=== PATIENT | female | born 1965 | race Caucasian/White ===

== ENCOUNTER 2020-07-21 19:59 | Emergency (ER) | payer MEDICAID ==
[~2020-07-21] VITALS: Ht 170.2 cm; Wt 177.3 kg
[2020-07-21] MEDS ORDERED: acetaminophen 325mg tablet PO ONE (20:45)
[2020-07-21] MEDS ORDERED: HYDR-3965 PO (22:26)
[2020-07-21 23:03] VITALS: BP 144/87
== END 2020-07-21 23:06 | disposition home or self-care (01) ==
LOC: ER 19:59
DX: S82.51XA Displaced fracture of medial malleolus of right tibia, initial encounter for closed fracture (principal); S82.491A Other fracture of shaft of right fibula, initial encounter for closed fracture; S50.811A Abrasion of right forearm, initial encounter; M79.604 Pain in right leg; K21.9 Gastro-esophageal reflux disease without esophagitis; F32.9 Major depressive disorder, single episode, unspecified; Z90.49 Acquired absence of other specified parts of digestive tract; Z79.899 Other long term (current) drug therapy; W18.39XA Other fall on same level, initial encounter; Y93.89 Activity, other specified; Y92.89 Other specified places as the place of occurrence of the external cause; Y99.8 Other external cause status
CPT/HCPCS: 29515; 73564; 73610; 99284

== ENCOUNTER 2021-06-12 19:59 | Emergency (ER) | payer MEDICAID ==
[~2021-06-12] VITALS: Ht 170.2 cm; Wt 173.9 kg
[2021-06-12 20:06] VITALS: BP 187/107
[2021-06-12] MEDS ORDERED: cyclobenzaprine 10mg tablet PO ONE (22:45)
== END 2021-06-12 23:11 | disposition home or self-care (01) ==
LOC: ER 20:00
DX: S00.03XA Contusion of scalp, initial encounter (principal); K21.9 Gastro-esophageal reflux disease without esophagitis; F32.A Depression, unspecified; Z90.49 Acquired absence of other specified parts of digestive tract; W19.XXXA Unspecified fall, initial encounter; Y93.89 Activity, other specified; Y92.89 Other specified places as the place of occurrence of the external cause; Y99.8 Other external cause status
CPT/HCPCS: 72125; 99284

== ENCOUNTER 2022-02-18 06:32 | Inpatient (IN) | payer MEDICAID ==
[2022-02-05 15:45] LABS: BASOPHILS % (AUTO) 0.7 % (0-1); EOSINOPHILS # (AUTO) 0.4 X10'3 (0-0.9); EOSINOPHILS % (AUTO) 6.2 % (0-6); LYMPHOCYTES # (AUTO) 2.1 X10'3 (1.1-4.8); LYMPHOCYTES % (AUTO) 30.6 % (21-51); MEAN CORPUSCULAR HEMOGLOBIN 28.3 PG (27.0-31.0); MEAN CORPUSCULAR VOLUME 85.8 FL (78-98); MEAN PLATELET VOLUME 7.6 FL (7.4-10.4); MONOCYTES # (AUTO) 0.6 X10'3 (0-0.9); MONOCYTES % (AUTO) 9.2 % (2-12); NEUTROPHILS # (AUTO) 3.7 X10'3 (1.8-7.7); NEUTROPHILS % (AUTO) 53.3 % (42-75); PRE OP HEMATOCRIT 40.1 % (35.0-45.0); PRE OP HEMOGLOBIN 13.2 g/dL (12.0-16.0); PRE OP PLATELET COUNT 267 X10'3 (140-440); RED BLOOD COUNT 4.67 X10'6 (4.20-5.60); RED CELL DISTRIBUTION WIDTH 16.3 % (11.5-14.5)
[2022-02-05 15:52] LABS: ALBUMIN 3.4 G/DL (3.4-5.0); ALBUMIN/GLOBULIN RATIO 0.9 (1.1-1.5); ALKALINE PHOSPHATASE 171 IU/L (46-116); BLOOD UREA NITROGEN 15 MG/DL (7-18); BUN/CREATININE RATIO 17.4 (6.6-38.0); CALCIUM 9.3 MG/DL (8.5-10.1); CHLORIDE 107 MMOL/L (99-107); CREATININE 0.86 MG/DL (0.40-0.90); PRE OP ALT 27 U/L (30-65); PRE OP ANION GAP 4 (8-16); PRE OP AST 27 U/L (10-37); PRE OP BILIRUB, TOTAL 0.3 MG/DL (0.0-1.0); PRE OP GLUCOSE 99 MG/DL (70-104); PRE OP POTASSIUM 5.1 MMOL/L (3.4-5.1); PRE OP SODIUM 141 MMOL/L (135-145); TOTAL CARBON DIOXIDE 30.3 MMOL/L (24-32); eGFR 69 ML/MIN
[2022-02-18] VITALS (45 sets, daily range): BP systolic 129–185; BP diastolic 60–105
[~2022-02-18] VITALS: Ht 168.3 cm; Wt 170.0 kg
[~2022-02-18 06:32] MED LIST: ALBU8.5H17 INH; BUPR-317 PO; DULO60CA65 PO; FERR325T7 PO; IRBE300T18 PO; OXYB5TAB16 PO; PANT40TA54 PO; PRAZ2CAP2 PO; acetaminophen 325mg tablet PO ONE; ceFAZolin inj. 3,000 MG in dextrose 5%-water 100 ML IV ONE; celeCOXIB 100mg capsule PO ONE; famotidine 20mg tablet PO ONE; gabapentin 300mg capsule PO ONE; metoclopramide 5 mg/ml inj IV ONE; oxyCODONE SR 10mg (sust. release) tab PO ONE; ringers solution, lacted 1,000 ML IV SCH; tranexamic acid inj. 1,000 MG in normal saline IV soln 100ML IV ONE; vancomycin 1,500 MG in NS 300ml IV soln IV ONE
[2022-02-18] MEDS ORDERED: tranexamic acid inj. 1,600 MG in normal saline 100ml IV soln 84 ML IV ONE ×3 (06:45→17:20)
[2022-02-18] MEDS ORDERED: magnesium hydroxide 30ml (MOM) UD suspension PO PRN ×2 (06:45→07:15)
[2022-02-18] MEDS ORDERED: acetaminophen 325mg tablet PO PRN ×2 (06:45→07:15)
[2022-02-18] MEDS ORDERED: bisacodyl 10mg suppository rectal RC PRN ×2 (06:45→07:15)
[2022-02-18] MEDS ORDERED: potassium cl 20mEq in 1/2 NS 1,000 ML IV SCH (06:45)
[2022-02-18] MEDS ORDERED: diphenhydrAMINE 25mg capsule PO PRN ×4 (06:45→07:15)
[2022-02-18] MEDS ORDERED: naloxone 0.4 mg/ml inj IV PRN ×2 (06:45→07:15)
[2022-02-18] MEDS ORDERED: HYDROcodone/acetaminophen 10/325mg tab PO PRN ×4 (06:45→07:15)
[2022-02-18] MEDS ORDERED: HYDROmorphone 1 mg/ml syringe IV PRN ×2 (06:45→07:15)
[2022-02-18] MEDS ORDERED: HYDROmorphone inj. 0.5 MG/0.5 ML DISP.SYRIN IV PRN ×2 (06:45→07:15)
[2022-02-18] MEDS ORDERED: ondansetron/PF 4mg/2ml inj IV PRN ×3 (06:45→10:45)
[2022-02-18] MEDS ORDERED: albuterol 2.5 MG/3 ML nebule NEB PRN (06:55)
--- NOTE | 2022-02-18 07:30 | NUR ---
TOTAL JOINT CHARTING: WAS NOT GIVEN OINTMENT BY DR HOLLOWAY. DID COMPLETED HIBICLENS SHOWERS X5 DAYS. READ THE BOOKLET AND WATCHED THE VIDEO. CSM'S WNL. RIGHT DORSAL PEDALIS PULSE PRESENT WITH DOPPLER AND MARKED.
[2022-02-18] MEDS ORDERED: ceFAZolin/D5W- 1GM premix 50 ML IV SCH ×2 (08:00→16:00)
[2022-02-18] MEDS ORDERED: ascorbic acid 500mg tablet PO SCH (08:00)
[2022-02-18] MEDS ORDERED: non-formulary drug (Duloxetine HCl 1 CAP) PO SCH (08:00)
[2022-02-18] MEDS ORDERED: pantoprazole 40mg Tablet.DR PO SCH (08:00)
[2022-02-18] MEDS ORDERED: non-formulary drug (Irbesartan 1 TAB) PO SCH (08:00)
[2022-02-18] MEDS ORDERED: gabapentin 300mg capsule PO SCH (08:00)
[2022-02-18] MEDS: buPROPion SR 150mg tablet PO SCH (08:00)
[2022-02-18] MEDS ORDERED: multivitamins, therapeutics tablet PO SCH (08:00)
[2022-02-18] MEDS ORDERED: oxybutynin 5mg tablet PO SCH ×2 (08:00)
[2022-02-18] MEDS ORDERED: buproprion 150mg XL (24-hour) tablet PO SCH (08:00)
[2022-02-18] MEDS ORDERED: aspirin 325mg tablet PO SCH (08:30)
--- NOTE | 2022-02-18 09:32 | NUR ---
PT DECLINES THE OXYCONTIN PRE-OP WHEN ASKED, STATES SHE IS ALREADY SLEEPY
[2022-02-18] MEDS ORDERED: ketorolac trometh. 30mg/ml inj. ONE (09:33)
[2022-02-18] MEDS ORDERED: ROPIVAcaine 0.5% (5mg/ml) 30ml vial ONE ×2 (09:33→09:34)
[2022-02-18] MEDS ORDERED: cloNIDine hcl/PF 100mcg/ml inj ONE (09:33)
[2022-02-18] MEDS ORDERED: epiNEPHrine 1 mg/ml inj ONE (09:33)
[2022-02-18] MEDS ORDERED: vancomycin 1,000mg inj ONE (09:33)
[2022-02-18 09:59] LABS: ISTAT CREATININE 0.8 mg/dL (0.6-1.1); ISTAT HGB 13.6 g/dl (12.0-16.0); ISTAT IONIZED CALCIUM 0.91 mmol/L (1.03-1.32); POC BUN/CREATININE RATIO 23.8 (6.6-38.0)
[2022-02-18] MEDS ORDERED: MIDAZolam 1 MG/ML 5ML VIAL ONE (10:07)
[2022-02-18] MEDS ORDERED: fentaNYL/PF 50MCG/1 ML 2ML syringe ONE ×2 (10:07→10:47)
[2022-02-18] MEDS ORDERED: sevoflurane 250ml liquid IH ONE (10:09)
[2022-02-18] MEDS ORDERED: ROPIVAcaine 0.2% (10 MG/5 ML) BOLUS INJECTION ADDCANAL PRN (10:45)
[2022-02-18] MEDS ORDERED: ringers solution, lacted 1,000 ML IV SCH (10:45)
[2022-02-18] MEDS ORDERED: proCHLORperazine 10 MG/2 ml inj IV PRN (10:45)
[2022-02-18] MEDS ORDERED: ROPIVAcaine 0.2%/PF PUMP/bolus 545 ML ADDCANAL SCH (10:45)
[2022-02-18] MEDS ORDERED: morphine 2 MG/ML inj. syringe IV PRN (10:45)
[2022-02-18] MEDS ORDERED: meperidine/PF 25mg/ml syringe IV PRN ×3 (10:45)
[2022-02-18] MEDS ORDERED: glycopyrrolate 0.2mg/ml inj ONE (11:52)
[2022-02-18] MEDS ORDERED: neostigmine methylsulfate 1 MG/ML 10ml vial ONE (11:52)
[2022-02-18] MEDS ORDERED: dexamethasone sod phosphate 4mg/ml inj. ONE (11:53)
[2022-02-18] MEDS ORDERED: LIDOcaine 2% (20mg/ml) 5ml vial ONE (11:53)
[2022-02-18] MEDS ORDERED: ondansetron/PF 4mg/2ml inj ONE (11:53)
[2022-02-18] MEDS ORDERED: propofol inj 20 ML IV ONE (11:53)
[2022-02-18] MEDS ORDERED: rocuronium 10mg/ml inj IV ONE (11:53)
--- NOTE | 2022-02-18 12:28 | NUR ---
Received from OR via BED, accompanied by Anesthesiologist and report given by PENELOPE Anesthesiologist. PATIENT WAKING UP, DENIES PAIN, V/S WNL, SCD ON, 20G TO LEFT WRIST, MERISSA DRESSING to RIGHT KNEE C/D/I with PWDER PACK. ON-Q CATHETER NOTED WITH C/D/I AND WILL START ROPIVACAINE DRIP AT 2 CC/HR. Addendum: 02/18/22 at 1250 by Loy Mendes RN Amended: Links added.
[2022-02-18] MEDS: morphine 4 MG/ML inj SYRINge IV PRN ×2 (13:11→13:22)
[2022-02-18] MEDS: labetalol 20mg/4ml (5mg/ml) syringe IV PRN ×3 (13:19→15:04)
--- NOTE | 2022-02-18 13:38 | NUR ---
UPDATED PHYSICAL THERAPY ABOUT PATIENT'S CONDITION AND RECOMMENDED. PT WILL COME TO ASSESS AND EVALUATE PATIENT.
[2022-02-18] MEDS: hydrALAZINE 20mg/ml inj. IV PRN ×3 (14:04→14:44)
[2022-02-18] MEDS ORDERED: cefazolin/dext.iso 2gm/100ml 100 ML IV SCH (16:00)
--- NOTE | 2022-02-18 16:19 | NUR ---
Patient in room PAS IN 900. I have received report from Alfonso SEVILLA and had the opportunity to awaiting patients arrival.
--- NOTE | 2022-02-18 16:28 | NUR ---
PATIENT HAS MET ALL CRITERIA FOR TRANSFER TO THE SURGICAL FLOOR. VSS. DRESSINGS INTACT. BED LOW, CALL LIGHT PRESENT AND 2 RAILS UP. RN PRESENT TO ACCEPT CARE OF PATIENT AND REPORT HAS BEEN CALLED. ALL QUESTIONS ANSWERED TO ACCEPTING RN.
[2022-02-18] MEDS: ceFAZolin inj. 3,000 MG in normal saline 100ml IV soln 100 ML IV SCH (17:09)
[2022-02-18] MEDS: potassium cl 20mEq in 1/2 NS 1,000 ML IV SCH ×3 (17:17→23:15)
--- NOTE | 2022-02-18 19:07 | NUR ---
patient voiding in bed ellis x3, post op VSS. knee brace in place with ice, no c/o pain. Report given to Roxie SEVILLA
[2022-02-18] MEDS ORDERED: vancomycin inj 1,750 MG in normal saline 500ml IV soln 350 ML IV ONE ×4 (20:00)
[2022-02-18] MEDS ORDERED: prazosin 1mg capsule PO SCH (21:00)
[2022-02-18] MEDS ORDERED: sennosides 8.6mg tablet PO SCH ×2 (21:00)
[2022-02-18] MEDS ORDERED: non-formulary drug (Prazosin Hcl 1 CAP) PO SCH (21:00)
[2022-02-18] MEDS: gabapentin 300mg capsule PO SCH (21:24)
[2022-02-18] MEDS: oxybutynin 5mg tablet PO SCH (21:30)
--- NOTE | 2022-02-18 23:00 | NUR ---
Student documentation: I have reviewed interventions, assessments performed and documented by Norma Goldsmith
[2022-02-19] MEDS: ceFAZolin inj. 3,000 MG in normal saline 100ml IV soln 100 ML IV SCH (01:15)
[2022-02-19 02:00] VITALS: BP 163/89
[2022-02-19] MEDS ORDERED: traMADol 50MG tablet PO PRN (06:10)
[2022-02-19 06:50] LABS: BASOPHILS % (AUTO) 0.1 % (0-1); EOSINOPHILS % (AUTO) 0.1 % (0-6); HEMATOCRIT 36.6 % (35.0-45.0); HEMOGLOBIN 12.3 g/dl (12.0-16.0); LYMPHOCYTES # (AUTO) 1.4 X10'3 (1.1-4.8); LYMPHOCYTES % (AUTO) 16.4 % (21-51); MEAN CORPUSCULAR HEMOGLOBIN 28.6 PG (27.0-31.0); MEAN CORPUSCULAR HGB CONC 33.5 g/dL (33.0-36.5); MEAN CORPUSCULAR VOLUME 85.5 FL (78-98); MEAN PLATELET VOLUME 7.4 FL (7.4-10.4); MONOCYTES # (AUTO) 0.7 X10'3 (0-0.9); MONOCYTES % (AUTO) 8.3 % (2-12); NEUTROPHILS # (AUTO) 6.4 X10'3 (1.8-7.7); NEUTROPHILS % (AUTO) 75.1 % (42-75); PLATELET COUNT 256 X10'3 (140-440); RED BLOOD COUNT 4.29 X10'6 (4.20-5.60); RED CELL DISTRIBUTION WIDTH 16.5 % (11.5-14.5); WHITE BLOOD COUNT 8.5 X10'3 (4.5-11.0)
--- NOTE | 2022-02-19 07:00 | NUR ---
Patient in room [facility] 346. I have received report from July CRULLER MAKER MACHINE and had the opportunity to ask questions and assume patient care.
[2022-02-19 07:11] LABS: ANION GAP 7 (8-16); CHLORIDE 106 MMOL/L (99-107); POTASSIUM 4.6 MMOL/L (3.5-5.1); SODIUM 139 MMOL/L (135-145); TOTAL CARBON DIOXIDE 25.9 MMOL/L (24-32)
[2022-02-19] MEDS: potassium cl 20mEq in 1/2 NS 1,000 ML IV SCH (07:15)
[2022-02-19 08:00] VITALS: BP 148/73
[2022-02-19] MEDS ORDERED: pantoprazole 40mg Tablet.DR PO SCH (08:00)
[2022-02-19] MEDS ORDERED: ascorbic acid 500mg tablet PO SCH (08:00)
[2022-02-19] MEDS ORDERED: losartan 50mg tablet PO SCH (08:00)
[2022-02-19] MEDS ORDERED: multivitamins, therapeutics tablet PO SCH (08:00)
[2022-02-19] MEDS ORDERED: duloxetine 30mg CAPSULE.DR PO SCH (08:00)
[2022-02-19] MEDS: buPROPion SR 150mg tablet PO SCH (08:27)
[2022-02-19] MEDS: oxybutynin 5mg tablet PO SCH (08:27)
[2022-02-19] MEDS: gabapentin 300mg capsule PO SCH ×2 (08:27→12:50)
[2022-02-19] MEDS ORDERED: aspirin 325mg tablet PO SCH (08:30)
[2022-02-19] MEDS: traMADol 50MG tablet PO PRN ×2 (08:35→12:51)
[2022-02-19 10:00] VITALS: BP 126/84
--- NOTE | 2022-02-19 11:21 | NUR ---
Joint surgery consult: Pt s/p R knee surgery this admit per EMR. Pt seen by RADHIKA for written/verbal high protein diet ed w/ RD contact information provided. RADHIKA encouraged pt to contact dietitian's office if further questions/concerns. Addendum: 02/19/22 at [address] Amended: Links added.
--- NOTE | 2022-02-19 13:27 | NUR ---
Patient discharge orders reviewed. instructions reviewed with patient and son. IV cannula removed with catheter intact. Patient tolerated well. Patient wheeled down to lobby by aid, accompanied by son.
[2022-02-19] MEDS ORDERED: celeCOXIB 100mg capsule PO SCH ×2 (20:00)
== END 2022-02-19 13:10 | disposition home or self-care (01) | DRG 326 ==
LOC: PAS 06:32 → PAS IN 07:09 → EDSTATUS 09:30 → SUR 3N 16:30
PROVIDERS: ADMIT Orthopaedic Surgery; ATTEND Orthopaedic Surgery
PROC: 0SRC0J9 Replacement of Right Knee Joint with Synthetic Substitute, Cemented, Open Approach (ICD-10-PCS; principal; 2022-02-18 10:09)
DX: M17.11 Unilateral primary osteoarthritis, right knee (principal); F32.9 Major depressive disorder, single episode, unspecified; F41.9 Anxiety disorder, unspecified; I10 Essential (primary) hypertension; Z79.899 Other long term (current) drug therapy
CPT/HCPCS: 36415; 71046; 73560; 80047; 80051; 80053; 82948; 85025; 86885; 86900; 86901; 87081; 93005; 97116; 97161; 97530; A4215; A4615; A6258; A7000; C1713; C1776; G0378; J0171; J0360; J0690; J0735; J1100; J1885; J2175; J2250; J2270; J2405; J2704; J2710; J2765; J2795; J3010; J3370; J3480; J3490; J7040; J7060; J7120

== ENCOUNTER 2022-03-27 12:21 | Inpatient (IN) | payer MEDICAID ==
[2022-03-26 10:13] LABS: BASOPHILS % (AUTO) 0.4 % (0-1); EOSINOPHILS # (AUTO) 0.1 X10'3 (0-0.9); EOSINOPHILS % (AUTO) 0.8 % (0-6); LYMPHOCYTES # (AUTO) 1.4 X10'3 (1.1-4.8); LYMPHOCYTES % (AUTO) 12.8 % (21-51); MEAN CORPUSCULAR HEMOGLOBIN 26.9 PG (27.0-31.0); MEAN CORPUSCULAR HGB CONC 31.9 g/dL (33.0-36.5); MEAN CORPUSCULAR VOLUME 84.3 FL (78-98); MEAN PLATELET VOLUME 7.1 FL (7.4-10.4); NEUTROPHILS # (AUTO) 8.2 X10'3 (1.8-7.7); PRE OP HEMATOCRIT 32.1 % (35.0-45.0); PRE OP PLATELET COUNT 322 X10'3 (140-440); RED BLOOD COUNT 3.81 X10'6 (4.20-5.60); RED CELL DISTRIBUTION WIDTH 15.9 % (11.5-14.5)
[2022-03-26 10:15] LABS: PRE OP HEMOGLOBIN 10.2 g/dL (12.0-16.0)
[2022-03-26 14:41] LABS: ALBUMIN 2.9 G/DL (3.4-5.0); ALBUMIN/GLOBULIN RATIO 0.8 (1.1-1.5); ALKALINE PHOSPHATASE 170 IU/L (46-116); BLOOD UREA NITROGEN 13 MG/DL (7-18); CALCIUM 8.9 MG/DL (8.5-10.1); CHLORIDE 102 MMOL/L (99-107); PRE OP ALT 16 U/L (30-65); PRE OP ANION GAP 13 (8-16); PRE OP AST 18 U/L (10-37); PRE OP BILIRUB, TOTAL 0.4 MG/DL (0.0-1.0); PRE OP GLUCOSE 147 MG/DL (70-104); PRE OP POTASSIUM 4.1 MMOL/L (3.4-5.1); PRE OP SODIUM 139 MMOL/L (135-145); TOTAL CARBON DIOXIDE 24.2 MMOL/L (24-32); TOTAL PROTEIN 6.5 G/DL (6.4-8.2)
[2022-03-26 15:26] LABS: BUN/CREATININE RATIO 14.3 (6.6-38.0); CREATININE 0.91 MG/DL (0.40-0.90); eGFR 64 ML/MIN
[~2022-03-27] VITALS: Ht 167.6 cm; Wt 165.6 kg
[2022-03-27] VITALS (25 sets, daily range): BP systolic 121–169; BP diastolic 51–78
[~2022-03-27 12:21] MED LIST changes: +ASPI-1071 PO; -acetaminophen 325mg tablet PO ONE; +albuterol 2.5 MG/3 ML nebule NEB ONE; -ceFAZolin inj. 3,000 MG in dextrose 5%-water 100 ML IV ONE; -celeCOXIB 100mg capsule PO ONE; -gabapentin 300mg capsule PO ONE; -metoclopramide 5 mg/ml inj IV ONE; -oxyCODONE SR 10mg (sust. release) tab PO ONE; -tranexamic acid inj. 1,000 MG in normal saline IV soln 100ML IV ONE; -vancomycin 1,500 MG in NS 300ml IV soln IV ONE
[2022-03-27] MEDS ORDERED: albuterol 2.5 MG/3 ML nebule NEB PRN ×2 (13:40→20:40)
[2022-03-27] MEDS ORDERED: vancomycin 1,000mg inj ONE ×4 (13:48→16:36)
[2022-03-27] MEDS ORDERED: epiNEPHrine 1 mg/ml inj ONE (13:48)
[2022-03-27] MEDS ORDERED: ketorolac trometh. 30mg/ml inj. ONE (13:48)
[2022-03-27] MEDS ORDERED: cloNIDine hcl/PF 100mcg/ml inj ONE (13:48)
[2022-03-27] MEDS ORDERED: ROPIVAcaine 0.5% (5mg/ml) 30ml vial ONE (13:49)
[2022-03-27] MEDS ORDERED: labetalol 20mg/4ml (5mg/ml) syringe IV PRN (14:10)
[2022-03-27] MEDS ORDERED: ringers solution, lacted 1,000 ML IV SCH (14:10)
[2022-03-27] MEDS ORDERED: morphine 2 MG/ML inj. syringe IV PRN (14:10)
[2022-03-27] MEDS ORDERED: fentaNYL/PF 50MCG/1 ML 2ML syringe IV PRN ×2 (14:10)
[2022-03-27] MEDS ORDERED: hydrALAZINE 20mg/ml inj. IV PRN (14:10)
[2022-03-27] MEDS ORDERED: ondansetron/PF 4mg/2ml inj IV PRN ×2 (14:10→17:30)
[2022-03-27] MEDS ORDERED: morphine 4 MG/ML inj SYRINge IV PRN (14:10)
[2022-03-27] MEDS ORDERED: MIDAZolam 1mg/ml 10ml vial ONE (15:43)
[2022-03-27] MEDS ORDERED: ceFAZolin 1000mg inj ONE ×3 (16:19)
--- NOTE | 2022-03-27 17:27 | NUR ---
Received from OR via BED, accompanied by Anesthesiologist DR GOMEZ and report given by Anesthesiologist AND ESCORT CAR DRIVER. PT DROWSY BUT APPROPRIATE, DENIES PAIN, RIGHT KNEE W/ISLAND DRSG COVERING INCISION CDI, DERMATOME LEVEL L-1. PIV TO LEFT A/C INFILTRATED. Addendum: 03/27/22 at 1952 by Huma Moncada RN Amended: Links added.
[2022-03-27] MEDS ORDERED: HYDROmorphone inj. 0.5 MG/0.5 ML DISP.SYRIN IV PRN (17:30)
[2022-03-27] MEDS ORDERED: bisacodyl 10mg suppository rectal RC PRN (17:30)
[2022-03-27] MEDS ORDERED: magnesium hydroxide 30ml (MOM) UD suspension PO PRN (17:30)
[2022-03-27] MEDS ORDERED: naloxone 0.4 mg/ml inj IV PRN (17:30)
[2022-03-27] MEDS ORDERED: HYDROcodone/acetaminophen 10/325mg tab PO PRN ×2 (17:30)
[2022-03-27] MEDS ORDERED: diphenhydrAMINE 25mg capsule PO PRN ×2 (17:30)
[2022-03-27] MEDS ORDERED: TRANEXAMIC ACID IV ONE (19:00)
[2022-03-27] MEDS ORDERED: NORMAL SALINE IV ONE (19:00)
--- NOTE | 2022-03-27 20:07 | NUR ---
Report called to receiving nurse. Transferred via BED, 2 BAGS OF Belongings, BACK PACK AND C-PAP TO ROOM 360B. RECEIVING RN AT BEDSIDE TO RECEIVE PT, BLL, CALL LIGHT GIVEN, SIDE RAILS UP X 2. Special Issues communicated to receiving nurse. YES. Addendum: 03/27/22 at 2016 by Huma Moncada RN Amended: Links added.
[2022-03-27] MEDS: HYDROmorphone 1 mg/ml syringe IV PRN (20:31)
[2022-03-27] MEDS: sennosides 8.6mg tablet PO SCH (21:42)
[2022-03-27] MEDS: ascorbic acid 500mg tablet PO SCH (21:43)
[2022-03-27] MEDS: gabapentin 300mg capsule PO SCH (21:43)
[2022-03-27] MEDS: vancomycin inj 1,750 MG in normal saline 500ml IV soln 350 ML IV SCH (22:43)
[2022-03-27] MEDS: traMADol 50MG tablet PO PRN (22:54)
[2022-03-27] MEDS: prazosin 1mg capsule PO SCH (22:55)
--- NOTE | 2022-03-27 23:00 | NUR ---
pt using own c-pap Addendum: 03/28/22 at 0739 by Chayito Mendez RN Amended: Links added.
[2022-03-28] MEDS ORDERED: ceFAZolin/D5W- 1GM premix 50 ML IV SCH
[2022-03-28] MEDS: potassium cl 20mEq in 1/2 NS 1,000 ML IV SCH ×4 (00:43→18:58)
[2022-03-28] MEDS: HYDROmorphone 1 mg/ml syringe IV PRN ×3 (00:47→18:54)
[2022-03-28] MEDS: ceFAZolin inj. 3,000 MG in normal saline 100ml IV soln 100 ML IV SCH ×3 (01:00→16:35)
[2022-03-28 02:00] VITALS: BP 125/52
[2022-03-28 05:00] VITALS: BP 137/62
[2022-03-28] MEDS: traMADol 50MG tablet PO PRN ×3 (05:11→20:39)
[2022-03-28 06:32] LABS: BASOPHILS % (AUTO) 0.3 % (0-1); EOSINOPHILS # (AUTO) 0.1 X10'3 (0-0.9); EOSINOPHILS % (AUTO) 0.5 % (0-6); HEMOGLOBIN 8.9 g/dl (12.0-16.0); LYMPHOCYTES # (AUTO) 0.9 X10'3 (1.1-4.8); LYMPHOCYTES % (AUTO) 8.1 % (21-51); MEAN CORPUSCULAR HEMOGLOBIN 27.7 PG (27.0-31.0); MEAN CORPUSCULAR HGB CONC 32.9 g/dL (33.0-36.5); MEAN CORPUSCULAR VOLUME 84.3 FL (78-98); MONOCYTES # (AUTO) 0.8 X10'3 (0-0.9); MONOCYTES % (AUTO) 7.1 % (2-12); NEUTROPHILS # (AUTO) 9.4 X10'3 (1.8-7.7); PLATELET COUNT 303 X10'3 (140-440); RED BLOOD COUNT 3.21 X10'6 (4.20-5.60); RED CELL DISTRIBUTION WIDTH 15.5 % (11.5-14.5); WHITE BLOOD COUNT 11.2 X10'3 (4.5-11.0)
[2022-03-28 06:45] VITALS: BP 95/47
[2022-03-28 07:03] LABS: ANION GAP 11 (8-16); CHLORIDE 101 MMOL/L (99-107); POTASSIUM 4.2 MMOL/L (3.5-5.1); SODIUM 137 MMOL/L (135-145); TOTAL CARBON DIOXIDE 24.8 MMOL/L (24-32)
--- NOTE | 2022-03-28 07:04 | NUR ---
Patient in room [facility] 360. I have received report from Pat and had the opportunity to ask questions and assume patient care.
[2022-03-28] MEDS: losartan 50mg tablet PO SCH (08:00)
[2022-03-28 08:17] LABS: CREATININE 0.85 MG/DL (0.40-0.90); eGFR 70 ML/MIN
[2022-03-28] MEDS: ascorbic acid 500mg tablet PO SCH ×2 (08:22→20:34)
[2022-03-28] MEDS: duloxetine 30mg CAPSULE.DR PO SCH (08:22)
[2022-03-28] MEDS: buPROPion SR 150mg tablet PO SCH ×3 (08:23→20:35)
[2022-03-28] MEDS: aspirin 81mg, enteric-coated 1 TAB TABLET.DR PO SCH (08:23)
[2022-03-28] MEDS: ferrous sulfate 325mg tablet PO SCH (08:24)
[2022-03-28] MEDS: oxybutynin 5mg tablet PO SCH ×2 (08:24→20:35)
[2022-03-28] MEDS: gabapentin 300mg capsule PO SCH ×3 (08:24→20:35)
[2022-03-28] MEDS: pantoprazole 40mg Tablet.DR PO SCH (08:24)
[2022-03-28] MEDS: multivitamins, therapeutics tablet PO SCH (08:24)
[2022-03-28] MEDS: vancomycin inj 1,750 MG in normal saline 500ml IV soln 350 ML IV SCH (08:32)
[2022-03-28 10:00] VITALS: BP 115/50
[2022-03-28] MEDS: vancomycin/NS 1 GM ADD-VANTAGE 250 ML IV SCH (17:17)
[2022-03-28 18:00] VITALS: BP 137/56
--- NOTE | 2022-03-28 18:15 | NUR ---
Problems reprioritized. Patient report given, questions answered & plan of care reviewed with Kenyatta.
[2022-03-28] MEDS: sennosides 8.6mg tablet PO SCH (20:34)
[2022-03-28] MEDS: celeCOXIB 100mg capsule PO SCH (20:34)
[2022-03-28] MEDS: prazosin 1mg capsule PO SCH (20:34)
[2022-03-28 22:00] VITALS: BP 146/71
[2022-03-28] MEDS: ceFAZolin inj. 2,000 MG in normal saline 100ml IV soln 100 ML IV SCH (23:33)
[2022-03-29] MEDS: vancomycin/NS 1 GM ADD-VANTAGE 250 ML IV SCH ×3 (00:22→17:07)
[2022-03-29] MEDS: potassium cl 20mEq in 1/2 NS 1,000 ML IV SCH (01:47)
[2022-03-29] MEDS: traMADol 50MG tablet PO PRN ×4 (05:07→20:28)
[2022-03-29 06:00] VITALS: BP 130/68
--- NOTE | 2022-03-29 06:25 | NUR ---
Problems reprioritized. Patient report given, questions answered & plan of care reviewed with Brendan Wilcox
[2022-03-29 06:35] LABS: BASOPHILS % (AUTO) 0.4 % (0-1); EOSINOPHILS # (AUTO) 0.7 X10'3 (0-0.9); EOSINOPHILS % (AUTO) 8.4 % (0-6); HEMATOCRIT 25.9 % (35.0-45.0); HEMOGLOBIN 8.5 g/dl (12.0-16.0); LYMPHOCYTES # (AUTO) 0.9 X10'3 (1.1-4.8); LYMPHOCYTES % (AUTO) 10.5 % (21-51); MEAN CORPUSCULAR HEMOGLOBIN 27.8 PG (27.0-31.0); MEAN CORPUSCULAR HGB CONC 32.8 g/dL (33.0-36.5); MEAN CORPUSCULAR VOLUME 84.9 FL (78-98); MEAN PLATELET VOLUME 7.3 FL (7.4-10.4); MONOCYTES # (AUTO) 0.6 X10'3 (0-0.9); MONOCYTES % (AUTO) 7.7 % (2-12); NEUTROPHILS # (AUTO) 6.1 X10'3 (1.8-7.7); PLATELET COUNT 312 X10'3 (140-440); RED BLOOD COUNT 3.05 X10'6 (4.20-5.60); RED CELL DISTRIBUTION WIDTH 15.5 % (11.5-14.5); WHITE BLOOD COUNT 8.3 X10'3 (4.5-11.0)
[2022-03-29] MEDS: ceFAZolin inj. 2,000 MG in normal saline 100ml IV soln 100 ML IV SCH ×2 (07:50→15:28)
[2022-03-29] MEDS: oxybutynin 5mg tablet PO SCH ×2 (08:47→20:23)
[2022-03-29] MEDS: multivitamins, therapeutics tablet PO SCH (08:47)
[2022-03-29] MEDS: pantoprazole 40mg Tablet.DR PO SCH (08:47)
[2022-03-29] MEDS: gabapentin 300mg capsule PO SCH ×3 (08:47→20:22)
[2022-03-29] MEDS: aspirin 81mg, enteric-coated 1 TAB TABLET.DR PO SCH (08:47)
[2022-03-29] MEDS: duloxetine 30mg CAPSULE.DR PO SCH (08:48)
[2022-03-29] MEDS: ascorbic acid 500mg tablet PO SCH ×2 (08:48→20:22)
[2022-03-29] MEDS: ferrous sulfate 325mg tablet PO SCH (08:48)
[2022-03-29] MEDS: celeCOXIB 100mg capsule PO SCH ×2 (08:49→20:22)
[2022-03-29] MEDS: losartan 50mg tablet PO SCH (08:51)
[2022-03-29] MEDS: buPROPion SR 150mg tablet PO SCH ×3 (09:08→20:22)
[2022-03-29 10:27] VITALS: BP 106/61
[2022-03-29] MEDS ORDERED: VANCOMYCIN LEVEL IV ONE (15:30)
[2022-03-29 18:00] VITALS: BP 121/54
--- NOTE | 2022-03-29 18:32 | NUR ---
Report given to Juliana Andrews RN, all questions answered. Pt ate dinner and is now resting comfortably.
--- NOTE | 2022-03-29 18:35 | NUR ---
Patient in room [facility] 360. I have received report from STARR Archer and had the opportunity to ask questions and assume patient care.
[2022-03-29] MEDS: prazosin 1mg capsule PO SCH (20:22)
[2022-03-29] MEDS: sennosides 8.6mg tablet PO SCH (20:23)
[2022-03-29 22:00] VITALS: BP 123/58
[2022-03-30] MEDS: ceFAZolin inj. 2,000 MG in normal saline 100ml IV soln 100 ML IV SCH ×4 (00:34→23:55)
[2022-03-30] MEDS: vancomycin/NS 1 GM ADD-VANTAGE 250 ML IV SCH (01:13)
[2022-03-30 06:00] VITALS: BP 110/51
[2022-03-30 06:16] LABS: BASOPHILS % (AUTO) 0.5 % (0-1); EOSINOPHILS # (AUTO) 0.7 X10'3 (0-0.9); EOSINOPHILS % (AUTO) 10.7 % (0-6); HEMATOCRIT 24.4 % (35.0-45.0); HEMOGLOBIN 8.1 g/dl (12.0-16.0); LYMPHOCYTES # (AUTO) 1.2 X10'3 (1.1-4.8); LYMPHOCYTES % (AUTO) 18.2 % (21-51); MEAN CORPUSCULAR HEMOGLOBIN 27.8 PG (27.0-31.0); MEAN CORPUSCULAR HGB CONC 33.3 g/dL (33.0-36.5); MEAN CORPUSCULAR VOLUME 83.4 FL (78-98); MEAN PLATELET VOLUME 7.1 FL (7.4-10.4); MONOCYTES # (AUTO) 0.7 X10'3 (0-0.9); MONOCYTES % (AUTO) 11.5 % (2-12); NEUTROPHILS # (AUTO) 3.9 X10'3 (1.8-7.7); NEUTROPHILS % (AUTO) 59.1 % (42-75); PLATELET COUNT 320 X10'3 (140-440); RED BLOOD COUNT 2.92 X10'6 (4.20-5.60); RED CELL DISTRIBUTION WIDTH 15.5 % (11.5-14.5); WHITE BLOOD COUNT 6.5 X10'3 (4.5-11.0)
--- NOTE | 2022-03-30 06:28 | NUR ---
Problems reprioritized. Patient report given, questions answered & plan of care reviewed with MANJU SEVILLA.
--- NOTE | 2022-03-30 06:56 | NUR ---
Patient in room [facility] 360. I have received report from israel wood rn and had the opportunity to ask questions and assume patient care.
[2022-03-30] MEDS: pantoprazole 40mg Tablet.DR PO SCH (07:38)
[2022-03-30] MEDS: aspirin 81mg, enteric-coated 1 TAB TABLET.DR PO SCH (07:38)
[2022-03-30] MEDS: gabapentin 300mg capsule PO SCH ×3 (07:38→20:15)
[2022-03-30] MEDS: oxybutynin 5mg tablet PO SCH ×2 (07:39→20:17)
[2022-03-30] MEDS: ascorbic acid 500mg tablet PO SCH ×2 (07:39→20:17)
[2022-03-30] MEDS: multivitamins, therapeutics tablet PO SCH (07:39)
[2022-03-30] MEDS: ferrous sulfate 325mg tablet PO SCH (07:39)
[2022-03-30] MEDS: duloxetine 30mg CAPSULE.DR PO SCH (07:39)
[2022-03-30] MEDS: buPROPion SR 150mg tablet PO SCH ×3 (07:40→20:17)
[2022-03-30] MEDS: losartan 50mg tablet PO SCH (07:41)
[2022-03-30] MEDS: celeCOXIB 100mg capsule PO SCH ×2 (07:47→20:17)
[2022-03-30] MEDS: traMADol 50MG tablet PO PRN ×3 (07:47→23:56)
[2022-03-30 10:00] VITALS: BP 106/52
--- NOTE | 2022-03-30 10:16 | NUR ---
JERED CORTES SCAN WAITING ON PHARMACY FOR NEW MEDICATION
[2022-03-30] MEDS: VANCOmycin 1250MG/NS 250ml Bag 250 ML IV SCH ×2 (10:47→16:49)
[2022-03-30 18:00] VITALS: BP 109/44
[2022-03-30] MEDS: prazosin 1mg capsule PO SCH (20:15)
[2022-03-30] MEDS: sennosides 8.6mg tablet PO SCH (20:15)
[2022-03-30 22:00] VITALS: BP 128/62
[2022-03-31] MEDS: VANCOmycin 1250MG/NS 250ml Bag 250 ML IV SCH ×3 (01:48→15:32)
--- NOTE | 2022-03-31 03:00 | NUR ---
Patient in room [facility] 360. I have received report from MANJU and had the opportunity to ask questions and assume patient care.
--- NOTE | 2022-03-31 03:02 | NUR ---
Problems reprioritized. Patient report given, questions answered & plan of care reviewed with coy ash.
[2022-03-31 06:00] VITALS: BP 110/65
--- NOTE | 2022-03-31 06:30 | NUR ---
Patient in room [facility] 360. I have received report from benjamin SEVILLA and had the opportunity to ask questions and assume patient care.
--- NOTE | 2022-03-31 06:52 | NUR ---
Problems reprioritized. Patient report given, questions answered & plan of care reviewed with
[2022-03-31] MEDS: multivitamins, therapeutics tablet PO SCH (07:21)
[2022-03-31] MEDS: traMADol 50MG tablet PO PRN ×2 (07:22→15:32)
[2022-03-31] MEDS: losartan 50mg tablet PO SCH (07:26)
[2022-03-31] MEDS: ascorbic acid 500mg tablet PO SCH ×2 (07:27→20:25)
[2022-03-31] MEDS: buPROPion SR 150mg tablet PO SCH ×3 (07:27→20:24)
[2022-03-31] MEDS: oxybutynin 5mg tablet PO SCH ×2 (07:27→20:24)
[2022-03-31] MEDS: duloxetine 30mg CAPSULE.DR PO SCH (07:27)
[2022-03-31] MEDS: ferrous sulfate 325mg tablet PO SCH (07:27)
[2022-03-31] MEDS: gabapentin 300mg capsule PO SCH ×3 (07:27→20:28)
[2022-03-31] MEDS: aspirin 81mg, enteric-coated 1 TAB TABLET.DR PO SCH (07:27)
[2022-03-31] MEDS: pantoprazole 40mg Tablet.DR PO SCH (07:27)
[2022-03-31] MEDS ORDERED: VANCOMYCIN LEVEL IV ONE (07:30)
[2022-03-31] MEDS: ceFAZolin inj. 2,000 MG in dextrose 5%-water 100 ML IV SCH ×3 (08:06→23:35)
[2022-03-31] MEDS: celeCOXIB 100mg capsule PO SCH ×2 (10:18→20:24)
[2022-03-31 11:00] VITALS: BP 124/59
--- NOTE | 2022-03-31 17:59 | NUR ---
patient up with PT see note Ultram given x2 for pain in right knee with good result . Continues with IV ABX. . For PICC placement in am rEPORT GIVEN TO KALYN SEVILLA
[2022-03-31 18:30] VITALS: BP 108/48
[2022-03-31] MEDS: prazosin 1mg capsule PO SCH (20:28)
[2022-03-31] MEDS: sennosides 8.6mg tablet PO SCH (20:29)
[2022-03-31] MEDS: acetaminophen 325mg tablet PO PRN (20:32)
[2022-03-31 22:00] VITALS: BP 136/60
[2022-04-01 06:00] VITALS: BP 110/54
--- NOTE | 2022-04-01 06:21 | NUR ---
Problems reprioritized. Patient report given, questions answered & plan of care reviewed with MARIELA. Addendum: 04/01/22 at 0622 by Carlito White RN Amended: Links added.
[2022-04-01 07:10] LABS: ALBUMIN 1.7 G/DL (3.4-5.0); ANION GAP 9 (8-16); BLOOD UREA NITROGEN 11 MG/DL (7-18); BUN/CREATININE RATIO 16.2 (6.6-38.0); CALCIUM 8.6 MG/DL (8.5-10.1); CHLORIDE 103 MMOL/L (99-107); CREATININE 0.68 MG/DL (0.40-0.90); GLUCOSE 99 MG/DL (70-104); POTASSIUM 4.3 MMOL/L (3.5-5.1); SODIUM 138 MMOL/L (135-145); TOTAL CARBON DIOXIDE 26.5 MMOL/L (24-32); eGFR 90 ML/MIN
[2022-04-01] MEDS: pantoprazole 40mg Tablet.DR PO SCH (07:58)
[2022-04-01] MEDS: gabapentin 300mg capsule PO SCH ×3 (07:58→20:44)
[2022-04-01] MEDS: duloxetine 30mg CAPSULE.DR PO SCH (07:58)
[2022-04-01] MEDS: celeCOXIB 100mg capsule PO SCH ×2 (07:58→20:45)
[2022-04-01] MEDS: losartan 50mg tablet PO SCH (07:58)
[2022-04-01] MEDS: buPROPion SR 150mg tablet PO SCH ×3 (07:58→20:45)
[2022-04-01] MEDS: aspirin 81mg, enteric-coated 1 TAB TABLET.DR PO SCH (07:58)
[2022-04-01] MEDS: rifampin 300mg capsule PO SCH ×2 (07:59→20:44)
[2022-04-01] MEDS: oxybutynin 5mg tablet PO SCH ×2 (07:59→20:44)
[2022-04-01] MEDS: ascorbic acid 500mg tablet PO SCH ×2 (07:59→20:44)
[2022-04-01] MEDS: ferrous sulfate 325mg tablet PO SCH (07:59)
[2022-04-01] MEDS: multivitamins, therapeutics tablet PO SCH (07:59)
[2022-04-01] MEDS: ceFAZolin inj. 2,000 MG in dextrose 5%-water 100 ML IV SCH ×3 (08:09→23:52)
[2022-04-01 10:00] VITALS: BP 119/59
--- NOTE | 2022-04-01 11:54 | NUR ---
Initial: Pt admit for right TKA incisional wound, currently POD #5 s/p I&D with polyethylene liner exchange. Cultures growing MSSA per physician note. Pt currently on a regular diet and eating well, documented with 75-100% PO intake throughout LOS meeting estimated nutrient needs. LBM 12/, receiving routine and PRN bowel care. No nutrition intervention implemented at this time. Will continue to follow. Recommendations: 1) Continue regular diet 2) Monitor need for additional protein 3) Continue routine Vitamin C and MVI 4) Continue routine bowel care 5) Scaled weight this admit; subsequent weekly scaled weights Addendum: 04/01/22 at [address] Amended: Links added.
[2022-04-01] MEDS: acetaminophen 325mg tablet PO PRN (14:45)
[2022-04-01 18:00] VITALS: BP 109/47
[2022-04-01 20:45] VITALS: BP 138/76
[2022-04-01] MEDS: prazosin 1mg capsule PO SCH (20:46)
[2022-04-01] MEDS: sennosides 8.6mg tablet PO SCH (20:46)
[2022-04-01 22:00] VITALS: BP 123/55
[2022-04-01] MEDS: traMADol 50MG tablet PO PRN (23:52)
[2022-04-02 06:00] VITALS: BP 124/50
[2022-04-02 06:11] LABS: ALBUMIN 1.7 G/DL (3.4-5.0); ANION GAP 9 (8-16); BLOOD UREA NITROGEN 11 MG/DL (7-18); BUN/CREATININE RATIO 19.3 (6.6-38.0); CALCIUM 8.5 MG/DL (8.5-10.1); CHLORIDE 103 MMOL/L (99-107); CREATININE 0.57 MG/DL (0.40-0.90); GLUCOSE 97 MG/DL (70-104); POTASSIUM 4.4 MMOL/L (3.5-5.1); SODIUM 138 MMOL/L (135-145); TOTAL CARBON DIOXIDE 26.5 MMOL/L (24-32); eGFR > 90 ML/MIN
[2022-04-02 06:34] VITALS: BP 124/50
--- NOTE | 2022-04-02 06:53 | NUR ---
Patient in room [facility] 360. I have received report from Marguerite SEVILLA and had the opportunity to ask questions and assume patient care.
--- NOTE | 2022-04-02 06:54 | NUR ---
Problems reprioritized. Patient report given, questions answered & plan of care reviewed with DI Hicks.
[2022-04-02] MEDS: ceFAZolin inj. 2,000 MG in dextrose 5%-water 100 ML IV SCH (08:07)
[2022-04-02] MEDS: celeCOXIB 100mg capsule PO SCH (08:08)
[2022-04-02] MEDS: losartan 50mg tablet PO SCH (08:08)
[2022-04-02] MEDS: aspirin 81mg, enteric-coated 1 TAB TABLET.DR PO SCH (08:09)
[2022-04-02] MEDS: multivitamins, therapeutics tablet PO SCH (08:09)
[2022-04-02] MEDS: pantoprazole 40mg Tablet.DR PO SCH (08:09)
[2022-04-02] MEDS: ferrous sulfate 325mg tablet PO SCH (08:09)
[2022-04-02] MEDS: duloxetine 30mg CAPSULE.DR PO SCH (08:09)
[2022-04-02] MEDS: gabapentin 300mg capsule PO SCH (08:09)
[2022-04-02] MEDS: oxybutynin 5mg tablet PO SCH (08:09)
[2022-04-02] MEDS: rifampin 300mg capsule PO SCH (08:09)
[2022-04-02] MEDS: buPROPion SR 150mg tablet PO SCH ×2 (08:10)
[2022-04-02] MEDS: ascorbic acid 500mg tablet PO SCH (08:15)
[2022-04-02 11:37] VITALS: BP 123/76
--- NOTE | 2022-04-02 12:33 | NUR ---
Called and left a message for Dr. Aguayo regarding question regarding medication prescription for Rifampin PO to go home with. Called Dr. Hernandez regarding this question per MD he said that Dr. Aguayo will usually put order and fax to pharmacy. However if pt. goes to [facility] and is not there pt. is to call Dr. Hernandez and he will put the order in.
--- NOTE | 2022-04-02 12:54 | NUR ---
IV DC, cannula intact pt tolerated procedure well. DC home with all personal belongings via wheelchair to private vehicle accompanied by staff and family member. [place] infusion education given by Lorin case managment.DC instructions given, pt. verbalized understanding and had opportunity to ask questions.
== END 2022-04-02 13:00 | disposition home health service (06) | DRG 325 ==
LOC: PAS IN 12:21 → SUR 3N 20:05
PROVIDERS: ADMIT Orthopaedic Surgery; ATTEND Orthopaedic Surgery
PROC: 0SUV09Z Supplement Right Knee Joint, Tibial Surface with Liner, Open Approach (ICD-10-PCS; 2022-03-27)
PROC: 0SBC0ZZ Excision of Right Knee Joint, Open Approach (ICD-10-PCS; 2022-03-27)
PROC: 5A09357 Assistance with Respiratory Ventilation, Less than 24 Consecutive Hours, Continuous Positive Airway Pressure (ICD-10-PCS; 2022-03-27)
PROC: 0SPC09Z Removal of Liner from Right Knee Joint, Open Approach (ICD-10-PCS; principal; 2022-03-27 15:35)
PROC: 5A09357 Assistance with Respiratory Ventilation, Less than 24 Consecutive Hours, Continuous Positive Airway Pressure (ICD-10-PCS; 2022-03-28)
PROC: 5A09357 Assistance with Respiratory Ventilation, Less than 24 Consecutive Hours, Continuous Positive Airway Pressure (ICD-10-PCS; 2022-03-31)
PROC: 02HV33Z Insertion of Infusion Device into Superior Vena Cava, Percutaneous Approach (ICD-10-PCS; 2022-04-01)
PROC: B548ZZA Ultrasonography of Superior Vena Cava, Guidance (ICD-10-PCS; 2022-04-01)
PROC: 5A09357 Assistance with Respiratory Ventilation, Less than 24 Consecutive Hours, Continuous Positive Airway Pressure (ICD-10-PCS; 2022-04-02)
DX: T84.53XA Infection and inflammatory reaction due to internal right knee prosthesis, initial encounter (principal); L03.115 Cellulitis of right lower limb; B95.61 Methicillin susceptible Staphylococcus aureus infection as the cause of diseases classified elsewhere; F32.A Depression, unspecified; E66.01 Morbid (severe) obesity due to excess calories; K21.9 Gastro-esophageal reflux disease without esophagitis; G47.30 Sleep apnea, unspecified; F41.9 Anxiety disorder, unspecified; I10 Essential (primary) hypertension; J44.9 Chronic obstructive pulmonary disease, unspecified; Y83.1 Surgical operation with implant of artificial internal device as the cause of abnormal reaction of the patient, or of later complication, without mention of misadventure at the time of the procedure; Y92.89 Other specified places as the place of occurrence of the external cause; Z79.82 Long term (current) use of aspirin; Z79.899 Other long term (current) drug therapy; Z90.49 Acquired absence of other specified parts of digestive tract; Z68.43 Body mass index [BMI] 50.0-59.9, adult
CPT/HCPCS: 36415; 36569; 73560; 76942; 80048; 80051; 80053; 80202; 82565; 82948; 85025; 85651; 86140; 86885; 86900; 86901; 87070; 87075; 87077; 87081; 87102; 87186; 94760; 97110; 97116; 97162; 97530; A4215; A4615; A6258; A6449; A6454; A7000; C1751; C1776; G0378; J0171; J0360; J0690; J0735; J1170; J1885; J2250; J2795; J3370; J3480; J3490; J7040; J7070; J7120

== ENCOUNTER 2024-02-13 17:20 | Emergency (ER) | payer MEDICAID ==
[~2024-02-13] VITALS: Ht 167.6 cm; Wt 184.3 kg
[~2024-02-13 17:20] MED LIST changes: -BUPR-317 PO; +BUPR-561 PO; -IRBE300T18 PO; +IRBE300T26 PO; -OXYB5TAB16 PO; +OXYB5TAB21 PO; -albuterol 2.5 MG/3 ML nebule NEB ONE; -famotidine 20mg tablet PO ONE; -ringers solution, lacted 1,000 ML IV SCH
[2024-02-13 17:21] VITALS: BP 207/97; PULSE 79; O2SAT 97
[2024-02-13] MEDS: ketorolac trometh 15mg/ml vial 15 MG/ML ML IV STA (19:35)
[2024-02-13 19:41] VITALS: RESP 18
[2024-02-13] MEDS: ketorolac trometh 15mg/ml vial 15 MG/ML ML IM ONE (19:41)
[2024-02-13 19:47] VITALS: TEMP 98.7
== END 2024-02-13 19:48 | disposition home or self-care (01) ==
LOC: ER 17:21
DX: M94.0 Chondrocostal junction syndrome [Tietze] (principal); K21.9 Gastro-esophageal reflux disease without esophagitis; F32.A Depression, unspecified; Z79.82 Long term (current) use of aspirin; Z79.899 Other long term (current) drug therapy; Z90.49 Acquired absence of other specified parts of digestive tract; Z87.11 Personal history of peptic ulcer disease
CPT/HCPCS: 96372; 99283; J1885